=== PATIENT | male | born 1970 | race Caucasian/White ===

== ENCOUNTER 2016-03-23 01:41 | Inpatient (IN) | payer OTHER, MEDICARE ==
[~2016-03-23] VITALS: Ht 182.9 cm; Wt 86.2 kg
[2016-03-23 03:09] VITALS: BP 123/75; PULSE 77; RESP 16; TEMP 97.5; O2SAT 98
[2016-03-23] MEDS ORDERED: LORazepam 1 MG TAB PO PRN (04:00)
[2016-03-23] MEDS ORDERED: traZODone HCL 50 MG TAB PO PRN (04:00)
[2016-03-23] MEDS ORDERED: ALUMINUM/MAGNESIUM/SIMETH 30 ML CUP PO PRN (04:00)
[2016-03-23] MEDS ORDERED: MAGNESIUM HYDROXIDE SUSP 30 ML CUP PO PRN (04:00)
[2016-03-23] MEDS ORDERED: LORazepam 2 MG/ML VIAL IM PRN ×5 (04:00→13:30)
[2016-03-23] MEDS ORDERED: ACETAMINOPHEN 325 MG TAB PO PRN (04:00)
[2016-03-23 07:59] LABS: ANION GAP 9 MEQ/L (5-15); BICARBONATE 27.2 MEQ/L (21.0-32.0); BLOOD UREA NITROGEN 3 MG/DL (7-18); CHLORIDE 106 MEQ/L (98-107); GLOMERULAR FILTRATION RATE 97 ML/MIN (>89); HDL CHOLESTEROL 30.9 MG/DL (40.0-60.0); LDL CHOLESTEROL 63 MG/DL (0-99); POTASSIUM 3.3 MEQ/L (3.5-5.1); SODIUM (NA) 142 MEQ/L (136-145)
[2016-03-23] MEDS: NICOTINE 21 MG/24 HR PATCH T-DERMAL SCH (09:05)
--- NOTE | 2016-03-23 11:48 | HHI.HP ---
Provisional Diagnosis Admission Date Mar 23, 2016 at 02:50 [place] I. 1. Polysubstance dependence with associated mood disorder [place] II. Deferred [place] V. GAF 45 presently Certification of Person's Competence To Provide Express and Informed Consent I have personally examined Mukesh Salomon , a person being served at [facility] on, Mar 23, 2016 11:47. Express and informed consent means consent voluntarily given in writing, by a competent person, after sufficient explanation and disclosure of the subject matter involved to enable the person to make a knowing and willful decision without any element of force, fraud, deceit, duress, or other form of constraint or coercion. This person is 18 years of age or older, is not now known to be incompetent to consent to treatment with a guardian advocate, and does not have a health care surrogate or proxy currently making medical treatment decisions. I have found this person to be one of the following: [x] Competent to provide express and informed consent, as defined above, for voluntary admission to this facility and is competent to provide express and informed consent for treatment. He/she has the consistent capacity to make well reasoned, willful, and knowing decisions concerning his or her medical or mental health treatment. The person fully and consistently understands the purpose of the admission for examination/placement and is fully capable of personally exercising all rights assured under [place] Incompetent to provide express and informed consent to voluntary admission, and this is incompetent to provide express and informed consent to treatment. The person must be transferred to involuntary status and a petition for a guardian advocate filed with the Circuit Court. [] Refusing to provide express and informed consent to voluntary admission but is competent to provide express and informed consent for treatment. The person must be discharged or transferred to involuntary status. Form shall be completed within 24 hours of a person's arrival at the receiving facility and filed in the clinical record of each person: 1. Admitted on a voluntary basis 2. Permitted to provide express and informed consent to his/her own treatment 3. Allowed to transfer from involuntary to voluntary status 4. Prior to permitting a person to consent to his or her own treatment after having been previously found incompetent to consent to treatment. History of Present Illness Capacity: Has Capacity HPI Mr. Salomon is a 45-year-old male with a reported history of bipolar disorder who presents in transfer from [facility] under a Fuentes act. Documentation from [facility] reviewed. Patient told the provider there that "he got into a fight with his ex-girlfriend and has no place to live so now he feels that he has nothing to live for and wants to overdose himself." This is patient's first visit to [facility]. Patient seen and examined with counselor, Edwina. Chart reviewed. Case discussed with nursing staff. On my examination today, the patient is a very vague historian. He says that he "just wants to ." He does not articulate any plan for doing so however. He says that he has been having this feeling for several weeks but will not describe this stressor. He also says that he has had command auditory hallucinations to hurt himself for about the same duration, but he is unable to describe these hallucinations in any detail without prompting. With prompting, such as for number of voices, sex of the voices, location of voices, and persistence of voices, his overall description is quite malingered. He cannot generate any depressive or hypomanic/manic symptoms. I can elicit no delusional beliefs. He does say he feels fairly "nervous" and is medication seeking for Valium. The remainder of the psychiatric ROS is negative. Past psychiatric history: Patient reports a prior diagnosis of bipolar disorder. He is not presently under the care of a psychiatrist. He says that he has prior psychiatric admissions at [facility]. He says that he tried to jump off a bridge a week ago. Review of Systems ROS Limitations: Poor Historian Other No reported headache, vision or hearing changes, chest pain, shortness of breath , bowel or bladder issues. No other somatic complaints Past Psych History Psychological trauma history No reported trauma history to me Violence risk - others (6 mos) Lower imminent risk Violence risk - self (6 mos) Indeterminate. Substance Abuse History Drugs/Alcohol past 12 months Patient admits to recent use of cannabis, cocaine and pain pills. Denies any other substance use. Toxicology at outside hospital was positive for benzodiazepines, cannabinoids, cocaine, opiates. Past Family Social History Uncoded Allergies: CITRUS (Allergy, Unknown, 03/23/16) Past Medical History Patient reports a history of hepatitis C for which he takes no medications presently Current Medications Medications (Trade) Dose Ordered Sig/Tashi Route Start Time Stop Time Status Last Admin (Ativan) 1 mg Q6H PRN PO 03/23/16 04:00 (Ativan Inj) 1 mg Q6H PRN IM 03/23/16 04:00 (Desyrel) 50 mg HS PRN PO 03/23/16 04:00 (Tylenol) 650 mg Q4H PRN PO 03/23/16 04:00 (Milk Of Magnesia Liq) 30 ml DAILY PRN PO 03/23/16 04:00 (Mag-Al Plus Susp Liq) 30 ml Q6H PRN PO 03/23/16 04:00 (Habitrol 21 Mg Patch.24 Hr) 1 patch DAILY T-DERMAL 03/23/16 09:00 03/23/16 09:05 Miscellaneous Information 1 HS T-DERMAL 03/23/16 21:00 Family History Patient reports that both his father and grandfather completed suicide by gunshot wound. No other family psychiatric history. Social History Patient reports he is homeless. He is single and has a daughter. He has a 12th grade education. He denies any or legal history. He is a [employer]. Denies any access to guns or firearms. Patient's Strengths (min. 2) Maintaining basic hygiene. Verbally fluent. Physical Exam A physical examination was completed at the outside hospital and the patient was medically cleared for psychiatric admission. On my examination today, the patient appears to be in no acute physical distress. No motoric abnormalities noted. No signs of withdrawal noted. Labs and vital signs reviewed. Vital Signs Vital Signs Date Time Temp Pulse Resp B/P Pulse Ox O2 Delivery O2 Flow Rate FiO2 03/23/16 03:09 97.5 77 16 123/75 98 Lab Results BMP and lipid panel from our system reviewed. I note patient is mildly hypokalemic. I have also reviewed the laboratories from outside hospital. CBC is significant for a mild leukocytosis at 12. Urine drug screen results as noted above. CMP significant for mild hypokalemia. TSH within normal limits. Urinalysis with 20 white blood cells and moderate leukocyte esterase for which the patient was started on some Bactrim. Mental Status Examination Patient is in hospital gown. He is fairly disheveled but maintaining basic hygiene. He is awake and alert and oriented to person and hospital least. No evidence of delirium. No abnormal motor movements noted. Speech is within normal limits for rate, tone and volume. Language and fund of knowledge seem adequate appropriate for age. Mood and affect are somewhat dysphoric. Thought process linear. No loosening of associations. No evident delusions. Describes vague command auditory hallucinations to hurt himself although the seem quite malingered in the patient does not appear internally stimulated. Endorses vague suicidal ideation without specific plan or intent. No homicidal ideation. Insight and judgment are fair. Assessment & Plan Problem List: (1) Other psychoactive substance dependence with psychoactive substance-induced mood disorder ICD Code: F19.24 Assessment & Plan This is a 45-year-old male with psychiatric history as detailed above who presents under a Fuentes act in transfer from outside hospital. Patient reports to me vague suicidal thoughts, possibly mediated by equally vague CAH. My suspicion is that the patient is exaggerating if not outright malingering his symptoms with secondary gain of obtaining snf as he has apparently lost his stable housing. Weight psychiatric symptomatology he does have is likely substance-induced. Nonetheless, we have no prior history with this patient and so prudence insists that we admit the patient briefly psychiatrically for observation. --Admit inpatient --Voluntary status --Replete potassium and recheck in the morning along with a magnesium level --Initiate Zyprexa 5 mg at bedtime for mood and also to help with sleep and reported hallucinations --Atarax as needed for anxiety. Cogentin as needed for EPS --CIWA with Ativan for any withdrawal --Vitals every shift --Counselor to see --Disposition planning --Estimated length of stay: 2-3 days Discharge Planning Pending outcome of observation Request HC Surrog/Guard Advoc?: No Wojciech Caicedo MD Mar 23, 2016 11:47
[2016-03-23] MEDS ORDERED: FLUMAZENIL 1 MG/10 ML VIAL IV PUSH PRN (13:30)
[2016-03-23] MEDS ORDERED: BENZTROPINE MESYLATE 1 MG TAB PO PRN (14:00)
[2016-03-23] MEDS ORDERED: BENZTROPINE MESYLATE 2 MG/2 ML VIAL IM PRN (14:00)
[2016-03-23 15:58] LABS: HEMOGLOBIN A1a 1.4 %; HEMOGLOBIN A1b 1.3 %; HEMOGLOBIN Ao 86.7 %; HEMOGLOBIN LA1C 1.7 %; HEMOGLOBIN P3 3.5 %
[2016-03-23] MEDS ORDERED: POTASSIUM CHLORIDE 10 MEQ CONTROLLED RELEASE TAB PO ONE (16:30)
[2016-03-23] MEDS: LORazepam 2 MG TAB PO PRN ×2 (17:17→21:26)
[2016-03-23 19:24] VITALS: BP 88/58; PULSE 82; RESP 16; TEMP 98.1; O2SAT 95
[2016-03-23] MEDS: REMOVE OLD NICOTINE PATCH T-DERMAL SCH (21:00)
[2016-03-23] MEDS: SULFAMETHOXAZOLE-TRIMETHOPRIM DS 800-160 MG TAB PO SCH (21:26)
[2016-03-23] MEDS: OLANZapine ODT 5 MG TAB PO SCH (21:26)
[2016-03-24 06:19] VITALS: BP 114/74; PULSE 66; RESP 18; TEMP 97.2; O2SAT 100
[2016-03-24] MEDS: NICOTINE 21 MG/24 HR PATCH T-DERMAL SCH (08:21)
[2016-03-24] MEDS: SULFAMETHOXAZOLE-TRIMETHOPRIM DS 800-160 MG TAB PO SCH ×2 (08:21→20:54)
[2016-03-24] MEDS: hydrOXYzine HCL 50 MG TAB PO PRN ×2 (08:24→16:56)
[2016-03-24 08:29] LABS: BICARBONATE 26.8 MEQ/L (21.0-32.0); MAGNESIUM 2.1 MG/DL (1.5-2.5); POTASSIUM 4.3 MEQ/L (3.5-5.1)
--- NOTE | 2016-03-24 11:32 | HHI.PYPN ---
Subjective Remarks Patient seen and examined with counselor nursing staff. Chart reviewed. Case discussed with nursing staff. On my examination today, patient is fixated on finding his clothes. He is fairly dysphoric. He continues to insist that he is hearing command auditory hallucinations but cannot describe these in any detail whatsoever, nor does he appear internally stimulated. Overall presentation remains quite malingered. In the setting of a discussion of discharge planning, he says in a very confrontational manner, "I just wanna fucking ." In context, this statement seems more a passive aggressive threat than a stacia katlin reflection of his inner emotional state. No evidence of any suicidality on the unit. Denies side effects from meds. Review of Systems ROS Limitations: Poor Historian Other No physical complaints reported. Objective Alert: Yes [place]: Person, Place (at least) Mood: Other (dysphoric) Affect: Restricted Memory Intact: Comment (Not formally assessed) Hallucinations: Other (Reports CAH; does not appear internally stimulated.) Delusions: No Delusion Type: Other (No delusions) Suicidal: Ideation (Threatens suicide in context of discharge discussion) Homicidal: Ideation (No HI) Insight/Judgement Fair Remarks No signs of withdrawal noted. No abnormal motor movements noted. Speech wnl for rate, tone, volume. TP linear. Labs Test 03/24/16 07:28 Sodium Level 143 MEQ/L Potassium Level 4.3 MEQ/L Chloride Level 109 MEQ/L Carbon Dioxide Level 26.8 MEQ/L Anion Gap 7 MEQ/L Blood Urea Nitrogen 7 MG/DL Creatinine 0.83 MG/DL Estimat Glomerular Filtration 101 ML/MIN Rate Random Glucose 78 MG/DL Calcium Level 9.0 MG/DL Magnesium Level 2.1 MG/DL Labs reviewed. Vitals/IOs Vital Signs Date Time Temp Pulse Resp B/P Pulse Ox O2 Delivery O2 Flow Rate FiO2 03/24/16 06:19 97.2 66 18 114/74 100 Assessment & Plan Problem List: (1) Other psychoactive substance dependence with psychoactive substance-induced mood disorder ICD Code: F19.24 Assessment & Plan Titrate Zyprexa to target reported CAH and irritability/dysphoria. Continue other medications and care as ordered. Justification for Cont. Inpt. Observing for safety. Discharge Planning Pending outcome of observation. Request HC Surrog/Guard Advoc?: No Wojciech Caicedo MD Mar 24, 2016 11:32
[2016-03-24 19:41] VITALS: BP 112/69; PULSE 85; RESP 18; TEMP 97.8; O2SAT 99
[2016-03-24] MEDS: OLANZapine ODT 5 MG TAB PO SCH (20:54)
[2016-03-24] MEDS: REMOVE OLD NICOTINE PATCH T-DERMAL SCH (20:54)
[2016-03-25 06:46] VITALS: BP 104/72; PULSE 80; RESP 18; TEMP 97.4; O2SAT 96
[2016-03-25] MEDS: OLANZapine 2.5 MG TAB PO SCH (09:19)
[2016-03-25] MEDS: NICOTINE 21 MG/24 HR PATCH T-DERMAL SCH (09:19)
[2016-03-25] MEDS: SULFAMETHOXAZOLE-TRIMETHOPRIM DS 800-160 MG TAB PO SCH ×2 (09:19→20:35)
[2016-03-25] MEDS: hydrOXYzine HCL 50 MG TAB PO PRN (09:20)
--- NOTE | 2016-03-25 10:39 | HHI.PYPN ---
Subjective Remarks Patient seen and examined with counselor. Chart reviewed. Case discussed with nursing staff who reports patient remained seclusive no real behavioral problem. On my examination today, patient verbalizes that he is still experiencing command auditory hallucinations to hurt himself. He does not appear internally stimulated. There has been no evidence of any suicidality on the inpatient unit. Sleep is reportedly fair. Affect remains fairly dysphoric. Main concern from the patient seems to be length of stay, and I explained that we will observe him for safety, and his exit line is "y'all know I'm still suicidal and hearing voices, right?" Denies side effects from meds. Review of Systems Other No physical complaints. No reported withdrawal symptoms. Objective Alert: Yes [place]: Person, Place Mood: Calm Affect: Restricted Memory Intact: Comment (seems at least fair on clinical exam) Hallucinations: Other (continues to report command auditory hallucinations but does not appear internally stimulated) Delusions: No Delusion Type: Other (no delusional material) Suicidal: Ideation (once again threatens suicide, today in context of length of stay discussion) Homicidal: Ideation (No HI) Insight/Judgement Fair Remarks No hand tremor, no diaphoresis, no other signs of withdrawal. No other motoric abnormalities noted. Thought process linear. Labs Labs reviewed. No new labs. Vitals/IOs Vital Signs Date Time Temp Pulse Resp B/P Pulse Ox O2 Delivery O2 Flow Rate FiO2 03/25/16 06:46 97.4 80 18 104/72 96 Assessment & Plan Problem List: (1) Other psychoactive substance dependence with psychoactive substance-induced mood disorder ICD Code: F19.24 Assessment & Plan Titrate Zyprexa to target reported hallucinations. Continue other medications and care as ordered. I continue to suspect a significant component of symptom exaggeration with the goal of remaining admitted to the inpatient psychiatric unit, I suspect for residential. I have recommended that he consider allowing us to place him in an assisted living facility, but he declines when he finds out that they take the majority of your check. Justification for Cont. Inpt. Observing for safety Discharge Planning Pending outcome of observation Request HC Surrog/Guard Advoc?: No Wojciech Caicedo MD Mar 25, 2016 10:38
[2016-03-25] MEDS ORDERED: PILL SPLITTER OTHER PRN (17:15)
[2016-03-25] MEDS: REMOVE OLD NICOTINE PATCH T-DERMAL SCH (20:35)
[2016-03-25 21:04] VITALS: BP 93/59; PULSE 90; RESP 18; TEMP 96.8; O2SAT 100
[2016-03-26 05:45] VITALS: BP 105/59; PULSE 64; RESP 16; TEMP 96.9; O2SAT 98
[2016-03-26] MEDS: OLANZapine 2.5 MG TAB PO SCH (09:26)
[2016-03-26] MEDS: SULFAMETHOXAZOLE-TRIMETHOPRIM DS 800-160 MG TAB PO SCH ×2 (09:27→21:55)
[2016-03-26] MEDS: NICOTINE 21 MG/24 HR PATCH T-DERMAL SCH (09:27)
--- NOTE | 2016-03-26 14:13 | HHI.PYPN ---
Subjective Remarks Pt seen and discussed with staff. He is malodorous and has spent most of day sleeping. He states that he is "hearing voices commanding me to hurt myself and others." Olanzapine was titrated yesterday and he denies side effects. Staff report that pt has not had any behavioral problems. Review of Systems Psychiatric: COMPLAINS OF: Hallucinations Objective Alert: Yes [place]: Person, Place Mood: Calm Affect: Restricted Memory Intact: Comment (seems at least fair on clinical exam) Hallucinations: Other (continues to report command auditory hallucinations but does not appear internally stimulated) Delusions: No Delusion Type: Other (no delusional material) Suicidal: Ideation (once again threatens suicide, today in context of length of stay discussion) Homicidal: Ideation (No HI) Insight/Judgement poor Remarks malodorous Vitals/IOs Vital Signs Date Time Temp Pulse Resp B/P Pulse Ox O2 Delivery O2 Flow Rate FiO2 03/26/16 05:45 96.9 64 16 105/59 98 Assessment & Plan Problem List: (1) Other psychoactive substance dependence with psychoactive substance-induced mood disorder ICD Code: F19.24 Assessment & Plan Continue current tx plan. Estimated LOS: days Justification for Cont. Inpt. monitoring for safety Request HC Surrog/Guard Advoc?: Renetta Long MD Mar 26, 2016 14:13
[2016-03-26 19:53] VITALS: BP 101/67; PULSE 86; RESP 18; TEMP 97.4; O2SAT 98
[2016-03-26] MEDS: REMOVE OLD NICOTINE PATCH T-DERMAL SCH (21:00)
[2016-03-26] MEDS: LORazepam 2 MG TAB PO PRN (21:56)
[2016-03-27 06:26] VITALS: BP 104/60; PULSE 70; RESP 17; TEMP 96.7
[2016-03-27] MEDS: OLANZapine 2.5 MG TAB PO SCH (10:03)
[2016-03-27] MEDS: NICOTINE 21 MG/24 HR PATCH T-DERMAL SCH (10:03)
[2016-03-27] MEDS: SULFAMETHOXAZOLE-TRIMETHOPRIM DS 800-160 MG TAB PO SCH ×2 (10:03→21:09)
--- NOTE | 2016-03-27 15:05 | HHI.PYPN ---
Subjective Remarks Pt seen and discussed with staff. He reports that mood is "fair' and that SI is present but lessened. He does not appear to be responding to internal stimuli. No HI. He has been out of room more and interacting in milieu. Objective Alert: Yes [place]: Person, Place, Date, Situation Mood: Calm Affect: Restricted Memory Intact: Comment (seems at least fair on clinical exam) Hallucinations: Other (continues to report command auditory hallucinations but does not appear internally stimulated) Delusions: No Delusion Type: Other (no delusional material) Suicidal: Ideation (vague) Homicidal: Ideation (No HI) Insight/Judgement poor Vitals/IOs Vital Signs Date Time Temp Pulse Resp B/P Pulse Ox O2 Delivery O2 Flow Rate FiO2 03/27/16 06:26 96.7 70 17 104/60 03/26/16 19:53 98 Assessment & Plan Problem List: (1) Other psychoactive substance dependence with psychoactive substance-induced mood disorder ICD Code: F19.24 Assessment & Plan Continue current tx plan. Estimated LOS: days Justification for Cont. Inpt. monitoring for safety Request HC Surrog/Guard Advoc?: No Renetta Rodríguez MD Mar 27, 2016 15:05
[2016-03-27] MEDS: LORazepam 1 MG TAB PO PRN ×2 (17:43→22:04)
[2016-03-27 19:35] VITALS: BP 115/70; PULSE 81; RESP 16; TEMP 98.2; O2SAT 98
[2016-03-27] MEDS: REMOVE OLD NICOTINE PATCH T-DERMAL SCH (21:00)
[2016-03-28 05:57] VITALS: BP 114/63; PULSE 79; RESP 18; TEMP 98.2
[2016-03-28] MEDS: OLANZapine 2.5 MG TAB PO SCH (09:23)
[2016-03-28] MEDS: SULFAMETHOXAZOLE-TRIMETHOPRIM DS 800-160 MG TAB PO SCH ×2 (09:24→09:26)
[2016-03-28] MEDS: NICOTINE 21 MG/24 HR PATCH T-DERMAL SCH (09:24)
--- NOTE | 2016-03-28 13:11 | HHI.PYPN ---
Subjective Remarks Patient seen and examined with counselor. Chart reviewed. Case discussed with nursing staff. There has been no evidence of any suicidality or homicidality on the inpatient unit. Patient continues to insist that he is experiencing command auditory hallucinations to hurt himself or others. However, he continues to be wholly unable to describe these voices in any meaningful detail , nor do see in anyway appear internally stimulated. He describes his mood as "nervous and scared" and the focus of his fear appears to be on his lack of supports in the area and homelessness. He does note that he has family in [place]. No SI or HI voiced. Denies side effects from medications. No other issues noted. Review of Systems ROS Limitations: Poor Historian Other No physical complaints today Objective Alert: Yes [place]: Person, Place, Date, Situation Mood: Anxious Affect: Blunted Memory Intact: Comment (fair) Hallucinations: Other (once again continues to report command auditory hallucinations but once again does not appear internally stimulated) Delusions: No Delusion Type: Other (no delusions) Suicidal: Ideation (no SI voiced) Homicidal: Ideation (no HI voiced) Insight/Judgement Fair Remarks No abnormal motor movements noted. No signs of withdrawal noted. Labs Labs reviewed. No new labs. 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 He has no signs of withdrawal and his vital signs are stable and so I will discontinue his withdrawal protocol and monitor. Continue other medications and care as ordered. Justification for Cont. Inpt. Monitoring for safety, although there has been absolutely no evidence of any suicidality or homicidality on the inpatient unit. Discharge Planning Pending outcome of observation. Case discussed with counselor. Request HC Surrog/Guard Advoc?: No Wojciech Caicedo MD Mar 28, 2016 13:10
[2016-03-28] MEDS: hydrOXYzine HCL 50 MG TAB PO PRN ×2 (14:33→20:44)
[2016-03-28 20:35] VITALS: BP 114/68; PULSE 103; RESP 18; TEMP 97.9; O2SAT 99
[2016-03-28] MEDS: REMOVE OLD NICOTINE PATCH T-DERMAL SCH (20:51)
[2016-03-28] MEDS: diphenhydrAMINE HCL 50 MG CAP PO PRN (22:04)
[2016-03-29 06:40] VITALS: BP 108/60; PULSE 75; RESP 18; TEMP 97.6; O2SAT 100
[2016-03-29] MEDS: OLANZapine 5 MG TAB PO SCH (09:00)
[2016-03-29] MEDS: NICOTINE 21 MG/24 HR PATCH T-DERMAL SCH (09:00)
--- NOTE | 2016-03-29 12:28 | HHI.PYPN ---
Subjective Remarks Patient seen and examined with counselor, nursing staff and occupational therapist in treatment team. Chart reviewed. Case discussed in treatment team. On my examination today, patient voices a desire to return to his family in [place], and counselor has linked him up with outpatient resources to facilitate making the journey. He denies any SI, HI or AVH presently. Denies side effects from medications and would like to titrate his Zyprexa to improve the quality of his sleep. I have discussed the risks and benefits of such change, including the possibility of excessive sedation. Review of Systems Other No physical complaints today. Objective Alert: Yes [place]: Person, Place, Date, Situation Mood: Calm Affect: Blunted Memory Intact: Comment (remains at least fair on clinical exam) Hallucinations: Other (denies AVH) Delusions: No Delusion Type: Other (no delusional material) Suicidal: Ideation (denies suicidal ideation) Homicidal: Ideation (denies homicidal ideation) Insight/Judgement Fair Remarks No abnormal motor movements noted. No signs of withdrawal. Thought process linear. Labs Labs reviewed. No new labs. 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 Titrate Zyprexa. Continue other medications and care as ordered. Justification for Cont. Inpt. Discharge planning. Discharge Planning Monitor overnight. Anticipate discharge tomorrow. Request HC Surrog/Guard Advoc?: No Wojciech Caicedo MD Mar 29, 2016 12:28
[2016-03-29 18:55] VITALS: BP 109/61; PULSE 93; RESP 18; TEMP 98.6; O2SAT 100
[2016-03-29] MEDS: diphenhydrAMINE HCL 50 MG CAP PO PRN (20:37)
[2016-03-29] MEDS: hydrOXYzine HCL 50 MG TAB PO PRN (20:37)
[2016-03-29] MEDS: OLANZapine 10 MG TAB PO SCH (20:37)
[2016-03-29] MEDS: REMOVE OLD NICOTINE PATCH T-DERMAL SCH (20:51)
[2016-03-30 05:46] VITALS: BP 102/60; PULSE 77; RESP 20; TEMP 97.6; O2SAT 98
[2016-03-30] MEDS: NICOTINE 21 MG/24 HR PATCH T-DERMAL SCH (09:00)
[2016-03-30] MEDS: OLANZapine 5 MG TAB PO SCH (09:13)
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
[2016-03-30] MEDS ORDERED: HYDR50TA94 PO (10:19)
[2016-03-30] MEDS ORDERED: OLAN5TAB PO (10:19)
[2016-03-30] MEDS ORDERED: OLAN10TA PO (10:19)
[2016-03-30 19:29] VITALS: BP 104/63; PULSE 100; RESP 18; TEMP 97.8; O2SAT 100
[2016-03-30] MEDS: OLANZapine 10 MG TAB PO SCH (20:36)
[2016-03-30] MEDS: REMOVE OLD NICOTINE PATCH T-DERMAL SCH (21:00)
== END 2016-03-30 22:00 | disposition home or self-care (01) | DRG 897 ==
LOC: H270 02:50
PROVIDERS: ADMIT Psychiatry & Neurology Psychiatry; ATTEND Psychiatry & Neurology Psychiatry
DX: F19.24 Other psychoactive substance dependence with psychoactive substance-induced mood disorder (principal); R45.851 Suicidal ideations; F31.9 Bipolar disorder, unspecified; B19.20 Unspecified viral hepatitis C without hepatic coma; F12.90 Cannabis use, unspecified, uncomplicated; Z59.0 Homelessness; E87.6 Hypokalemia; R45.4 Irritability and anger
CPT/HCPCS: 80048; 80061; 83036; 83735; Q0163

== ENCOUNTER 2016-07-28 18:04 | Emergency (ER) | payer MEDICARE, MEDICAID, OTHER ==
[~2016-07-28 18:04] MED LIST: HYDR50TA94 PO; OLAN10TA PO; OLAN5TAB PO
[2016-07-28 19:02] VITALS: BP 118/78; PULSE 135; TEMP 99.3; O2SAT 96
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
[2016-07-28 20:06] VITALS: BP 116/78; PULSE 92; RESP 22; TEMP 98.3; O2SAT 98
--- NOTE | 2016-07-28 20:29 | RADRPT ---
EXAM DATE/TIME: 07/28/2016 20:07 [facility] COMPARISON: No previous studies available for comparison. INDICATIONS : Right shoulder pain after fall. MEDICAL HISTORY : None. SURGICAL HISTORY : None. ENCOUNTER: Initial ACUITY: 1 week PAIN SCORE: 10/10 LOCATION: Right shoulder. FINDINGS: Two view examination of the right shoulder demonstrates no evidence of fracture or dislocation. The glenohumeral and acromioclavicular joints are maintained. Bony mineralization is normal. CONCLUSION: Unremarkable limited examination of the right shoulder. Blu Guzmán MD on July 28, 2016 at 20:26 Board Certified Radiologist. This report was verified electronically.
[2016-07-28 21:14] LABS: AMPHETAMINE, URINE NEG (NEG); BARBITURATES, URINE NEG (NEG); COCAINE, URINE POS (NEG)
[2016-07-28 21:23] VITALS: BP 121/75; PULSE 85; RESP 18; O2SAT 95
[2016-07-28 22:38] LABS: AUTOMATED NEUTROPHIL # 5.6 TH/MM3 (1.8-7.7); BASOPHIL # 0.1 TH/MM3 (0-0.2); BASOPHIL % 0.9 % (0.0-2.0); EOSINOPHIL # 0.1 TH/MM3 (0-0.4); EOSINOPHIL % 1.3 % (0.0-4.0); HEMATOCRIT 50.2 % (39.0-51.0); HEMO FLAGS DIFF FINAL; LYMPH % 35.8 % (9.0-44.0); LYMPHOCYTE # 3.7 TH/MM3 (1.0-4.8); MEAN CELL VOLUME 85.6 FL (80.0-100.0); MEAN CORPUSCULAR HEMOGLOBIN 30.3 PG (27.0-34.0); MEAN CORPUSCULAR HGB CONC 35.4 % (32.0-36.0); PLATELET COUNT 261 TH/MM3 (150-450); RED BLOOD COUNT 5.87 MIL/MM3 (4.50-5.90); RED CELL DISTRIBUTION WIDTH 14.1 % (11.6-17.2); WHITE BLOOD COUNT 10.2 TH/MM3 (4.0-11.0)
[2016-07-28 22:53] LABS: ANION GAP 10 MEQ/L (5-15)
[2016-07-28 22:54] LABS: ALT (GPT) 44 U/L (12-78); AST (GOT) 26 U/L (15-37); BICARBONATE 28.4 MEQ/L (21.0-32.0); BLOOD UREA NITROGEN 11 MG/DL (7-18); CHLORIDE 101 MEQ/L (98-107); GLOMERULAR FILTRATION RATE 72 ML/MIN (>89); POTASSIUM 3.3 MEQ/L (3.5-5.1); SODIUM (NA) 139 MEQ/L (136-145)
[2016-07-28 22:55] LABS: ALKALINE PHOSPHATASE 104 U/L (45-117); TOTAL BILIRUBIN ADULT 1.1 MG/DL (0.2-1.0)
[2016-07-28 22:56] LABS: ACETAMINOPHEN LESS THAN 2.0 MCG/ML (10.0-30.0)
[2016-07-28] MEDS ORDERED: POTASSIUM CHLORIDE 20 MEQ CONTROLLED RELEASE TAB PO ONE (23:15)
[2016-07-28] MEDS ORDERED: IBUPROFEN 800 MG TAB PO ONE (23:15)
[2016-07-28] MEDS ORDERED: diphenhydrAMINE HCL 50 MG CAP PO ONE (23:15)
[2016-07-29 02:24] VITALS: BP 110/59; PULSE 80; RESP 18; O2SAT 98
[2016-07-29 06:00] VITALS: BP 132/62; PULSE 81; RESP 18; O2SAT 99
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
[2016-07-29 14:38] VITALS: BP 127/77; PULSE 85; RESP 18; O2SAT 95
[2016-07-29 15:07] VITALS: BP 127/77; PULSE 85; RESP 18; O2SAT 95
== END 2016-07-29 16:05 | disposition home or self-care (01) ==
LOC: NEDAMB 18:04 → NEPJ 07-29 16:05
DX: S43.401A Unspecified sprain of right shoulder joint, initial encounter (principal); F12.90 Cannabis use, unspecified, uncomplicated; F15.90 Other stimulant use, unspecified, uncomplicated; F14.90 Cocaine use, unspecified, uncomplicated; R45.851 Suicidal ideations; F32.9 Major depressive disorder, single episode, unspecified; Z72.0 Tobacco use; W18.09XA Striking against other object with subsequent fall, initial encounter; Y93.9 Activity, unspecified; Y92.9 Unspecified place or not applicable; Y99.9 Unspecified external cause status
CPT/HCPCS: 73030; 80053; 80307; 85025; 99284; Q0163